=== PATIENT | female | born 1960 | race Asian ===

== ENCOUNTER 2024-10-28 14:58 | Emergency (ER) | payer OTHER, MEDICARE ==
[~2024-10-28] VITALS: Ht 160 cm; Wt 66.0 kg
[~2024-10-28 14:58] MED LIST: ACET-3207 PO; ASPI-556 PO; ATOR40TA28 PO; CLOP75TA60 PO; ISOS30TA92 PO; LISI-893 PO; METO-327 PO
[2024-10-28 15:11] VITALS: TEMP 98.4
[2024-10-28 15:24] LABS: BASOPHILS % (AUTO) 0.6 % (0.0-2.0); EOSINOPHILS % (AUTO) 1.4 % (1.0-6.0); HEMATOCRIT 35.1 % (36-46); HEMOGLOBIN 11.6 g/dL (12.0-16.0); LYMPHOCYTES # (AUTO) 1.4 K/uL (1.0-4.8); LYMPHOCYTES % (AUTO) 15.3 % (22.0-44.0); MEAN CORPUSCULAR HEMOGLOBIN 30.3 pg (26.0-34.0); MEAN CORPUSCULAR VOLUME 92 fL (80-100); MONOCYTES # (AUTO) 0.5 K/uL (0.1-1.0); MONOCYTES % (AUTO) 5.8 % (2.0-9.0); NEUTROPHILS # (AUTO) 7.1 K/uL (1.8-7.7); NEUTROPHILS % (AUTO) 76.9 % (40.0-70.0); PLATELET COUNT (AUTO) 211 K/uL (150-450); RED BLOOD CELL COUNT(AUTO) 3.83 MIL/uL (4.00-5.20); RED CELL DISTRIBUTION WIDTH 13.3 % (11.5-14.5); WHITE BLOOD COUNT (AUTO) 9.2 K/uL (4.5-11.0)
[2024-10-28] MEDS: HydrALAZINE HCL 25 MG TABLET PO ONE (15:24)
[2024-10-28] MEDS: CloNIDine 0.2 MG/24 HOUR PATCH TD ONE (15:24)
[2024-10-28] MEDS: ONDANSETRON HCL 4 MG/2 ML VIAL IVP ONE (15:24)
[2024-10-28 15:33] LABS: ANION GAP 11 mmol/L (8-16); CALCIUM, TOTAL 9.2 mg/dL (8.8-10.5); CARBON DIOXIDE 21 mmol/L (22-29); CHLORIDE 108 mmol/L (98-107); CREATININE 2.86 mg/dL (0.60-1.30); GLOMERULAR FILTR. RATE CALC 17 mL/min (>60); GLUCOSE,RANDOM 153 mg/dL (70-110); POTASSIUM 4.5 mmol/L (3.5-5.1); SODIUM SERUM 140 mmol/L (136-145); UREA NITROGEN, BLOOD 37 mg/dL (7-18)
[2024-10-28 15:43] LABS: TROPONIN I-HIGH SENSITIVITY 39 ng/L (<51)
[2024-10-28 15:44] LABS: B-TYPE NATRIURETIC PEPTIDE 316 pg/mL (0-100)
[2024-10-28 16:31] VITALS: BP 204/89; PULSE 62; RESP 15; O2SAT 99
== END 2024-10-28 17:59 | disposition home or self-care (01) ==
LOC: EMS 14:58
DX: I10 Essential (primary) hypertension (principal); I12.9 Hypertensive chronic kidney disease with stage 1 through stage 4 chronic kidney disease, or unspecified chronic kidney disease; E78.00 Pure hypercholesterolemia, unspecified; Z79.02 Long term (current) use of antithrombotics/antiplatelets; Z79.82 Long term (current) use of aspirin; Z79.899 Other long term (current) drug therapy; Z95.5 Presence of coronary angioplasty implant and graft
CPT/HCPCS: 99285; 96374; 71045; 80048; 83880; 84484; 85025; 36415; 93005; J2405